=== PATIENT | male | born 1950 | race Caucasian/White ===

== ENCOUNTER 2017-07-26 08:10 | Inpatient (IN) | payer BC, OTHER ==
[2017-06-16 14:47] VITALS: BMI 24.0
--- NOTE | 2017-06-16 15:22 | PAT Medication Instructions ---
Service Date Jun 16, 2017. Current Home Medication List Ascorbic Acid (Vitamin C), 1,000 MG PO QAM Cholecalciferol (Vitamin D), 1,000 UNITS PO QAM Fluticasone Propionate (Nasal) (Flonase Allergy Relief), 2 SPRAYS INTNAS PRN Loratadine (Claritin), 10 MG PO QPM PRN for RN Misc Natural Products (Osteo Bi-Flex Advanced Do), 1 TAB PO BID PRN for PRN Naproxen (Aleve), 220 MG PO QAM Polyethylene Glycol 3350 (Miralax), 17 GM PO DAILY PRN for PRN Tamsulosin Hcl (Flomax), 0.4 MG PO QPM [Vitamin Pack], 1 DOSE PO QAM Medication Instructions For Your Scheduled Surgery -Contact your surgeon for instructions: Naproxen (Aleve), 220 MG PO QAM - Hold the following medications 2 weeks prior to surgery: Misc Natural Products (Osteo Bi-Flex Advanced Do), 1 TAB PO BID PRN for PRN - Hold the following medications the morning of surgery: Ascorbic Acid (Vitamin C), 1,000 MG PO QAM Cholecalciferol (Vitamin D), 1,000 UNITS PO QAM Loratadine (Claritin), 10 MG PO QPM PRN for RN Polyethylene Glycol 3350 (Miralax), 17 GM PO DAILY PRN for PRN [Vitamin Pack], 1 DOSE PO QAM - Take the following medications the morning of surgery: Fluticasone Propionate (Nasal) (Flonase Allergy Relief), 2 SPRAYS INTNAS PRN ( if needed) - Take the following medications as scheduled the night before surgery: (if needed) Fluticasone Propionate (Nasal) (Flonase Allergy Relief), 2 SPRAYS INTNAS PRN Loratadine (Claritin), 10 MG PO QPM PRN for RN (if needed) Tamsulosin Hcl (Flomax), 0.4 MG PO QPM Polyethylene Glycol 3350 (Miralax), 17 GM PO DAILY PRN for PRN (if needed) If you have any questions please call us at [phone] or [phone] or [phone]
--- NOTE | 2017-06-16 16:04 | DIAGNOSTIC IMAGING REPORT ---
CHEST 2 VIEWS ROUTINE CLINICAL HISTORY: pat preoperative evaluation COMPARISON STUDY: No previous studies for comparison. FINDINGS: Mild emphysematous change. No focal infiltrate. Heart top normal size limits of normal terms of size. Diaphragms smooth but somewhat flattened. IMPRESSION: Mild emphysematous change. No acute process. The above report was generated using voice recognition software. It may contain grammatical, syntax or spelling errors. Electronically signed by: Brando Steen M.D. 06/16/2017 4:03 PM Dictated Date/Time: 06/16/2017 4:02 PM
[2017-06-16 16:34] LABS: HEMOGLOBIN A1C 5.1 % (4.5-5.6)
[2017-06-16 16:55] LABS: PTT PATIENT 26.9 SECONDS (21.0-31.0)
--- NOTE | 2017-07-14 15:29 | HISTORY & PHYSICAL EXAMINATION ---
DATE OF ADMISSION: 07/26/2017 CHIEF COMPLAINT: Right hip pain. HISTORY OF PRESENT ILLNESS: Mr. Garcia is a 67-year-old male with a 10-year history of right hip pain. The patient rates his pain at 10/10. He has pain with his daily activities. He has limited standing and walking tolerance. Pain is worse with weightbearing. The patient has had injections, physical therapy, home exercise programs and anti-inflammatories through the years without relief. He has failed conservative treatment and is scheduled for right hip replacement. PAST MEDICAL HISTORY: Osteoarthritis. He denies heart disease, diabetes or DVT. PAST SURGICAL HISTORY: Tonsillectomy, appendectomy, right knee meniscectomy, and left bicep tendon repair. SOCIAL HISTORY: The patient drinks alcohol occasionally. He denies tobacco use. He lives in a single story home. 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 FAMILY HISTORY: The patient is adopted. MEDICATIONS: Flomax, Flonase, multivitamin and vitamin D. ALLERGIES: None. REVIEW OF SYSTEMS: See HPI. Ten other systems reviewed, all negative. PHYSICAL EXAMINATION: VITAL SIGNS: Height 71 inches, weight 175 pounds and BMI is 25. GENERAL: This is a well-developed and well-nourished male, who is alert and oriented x3. Mood and affect are appropriate. HEENT: Normocephalic and atraumatic. Mucous membranes are moist and intact. NECK: Supple without lymphadenopathy. HEART: Regular rate and rhythm without murmurs, rubs or gallops. LUNGS: Clear to auscultation without wheezes or rhonchi. ABDOMEN: Soft and nontender. Bowel sounds are equal and active. EXTREMITIES: No ecchymosis, redness or warmth. Thigh and calf are soft and nontender. Logroll of the hip reproduces pain in the groin. He is neurovascularly intact. He walks with an antalgic gait. X-RAY EXAMINATION: AP and lateral views show joint space narrowing and osteophyte formation. IMPRESSION: Degenerative joint disease, right hip. PLAN: The patient will be admitted for a right total hip arthroplasty. We will plan on aspirin for DVT prophylaxis. The patient is going to have [facility] for home physical therapy. [facility]
[2017-07-26] VITALS (8 sets, daily range): BP systolic 114–145; BP diastolic 68–91; PULSE 57–81; TEMP 36.3–37.3; O2SAT 96–100; Ht 180.3 cm; Wt 80.0 kg
[~2017-07-26] VITALS: Ht 180.3 cm; Wt 80.0 kg
[2017-07-26] MEDS: TRANEXAMIC ACID INJ 1,000 MG x 2 Bags IV SCH ×4 (06:30→10:24)
[~2017-07-26 08:10] MED LIST: ACETAMINOPHEN 500 MG TAB PO SCH; ASCO10003 PO; ATROPINE SULFATE 0.1 MG/ML 5ML SYR IV PRN; BUPIVACAINE 0.5 % 5 MG/1 ML PF 10ML VIAL ONE; CEFAZOLIN 2000MG IV PUSH 15 ML IV SCH; CHOL100010 PO; CLR10 PO; CeleBREX 200 MG CAP PO SCH; DEXAMETHASONE 4 MG TAB PO SCH; EpHEDrine SULFATE INJ 50 MG/ML AMP IV PRN; FAMOTIDINE 20 MG TAB PO SCH; FENTANYL CITRATE INJ 50 MCG/1 ML 2 ML VIAL IV PRN; FLUT0.15 INTNAS; GABAPENTIN 300 MG CAP PO SCH; HYDROmorphone INJ 1 MG/ML SYR IV PRN; LACTATED RINGER'S 1000ML 1,000 ML IV SCH; LACTATED RINGER'S 1000ML 500 ML IV SCH; METOCLOPRAMIDE HCL 10 MG TAB PO SCH; MISCTAB78 PO; NAPR1TAB9 PO; ONDANSETRON INJ 2 MG/ML 2 ML VIAL IV PRN; PHENYLEPHRINE 100MCG/ML 5ML SYR IV PRN; POLY335019 PO; PROMETHAZINE HCL INJ 12.5 MG in SODIUM CHLORIDE 0.9% 50ML 50 ML IV PRN; ROPIVACAINE 5MG/ML 30 ML 150 MG, BUPIVACAINE 0.5% MPF INJ 30 ML, EpINEphrine HCL INJ 0.... INFIL SCH; TAMS0.4C38 PO; VITAMIN PACK PO
[2017-07-26] MEDS ORDERED: MIDAZOLAM HCL 1 MG/ML 2ML VIAL ONE (08:58)
[2017-07-26] MEDS ORDERED: FENTANYL CITRATE INJ 50 MCG/1 ML 2 ML VIAL ONE (08:58)
--- NOTE | 2017-07-26 08:59 | History & Physical Bridge Note ---
H&P Re-Evaluation Bridge Note: I have examined the patient, reviewed the History & Physical and in the interval since the performance of the History & Physical I have noted the following changes of clinical significance: No changes noted
[2017-07-26] MEDS ORDERED: LORATADINE 10 MG TAB PO PRN (09:00)
[2017-07-26] MEDS ORDERED: FLUTICASONE PROPIONATE NA SPR 16 GM BTL PRN (09:00)
[2017-07-26] MEDS ORDERED: ORTHO JOINT ANESTHETIC ONE (09:29)
[2017-07-26] MEDS ORDERED: BACITRACIN 50000 UNIT VIAL ONE (09:29)
[2017-07-26] MEDS ORDERED: POVIDONE-IODINE OP SOLN 30 ML BTL ONE (09:29)
[2017-07-26] MEDS ORDERED: ONDANSETRON INJ 2 MG/ML 2 ML VIAL ONE (13:00)
[2017-07-26] MEDS ORDERED: PROPOFOL IV EMULSION 10 MG/ML 20 ML VIAL IV ONE (13:00)
[2017-07-26] MEDS ORDERED: EpHEDrine SULFATE 50MG/5ML SYR ONE (13:01)
--- NOTE | 2017-07-26 13:09 | [facility] Post Operative Brief Note ---
Immediate Operative Summary Operative Date Jul 26, 2017. Pre-Operative Diagnosis Right Hip Osteoarthritis Post-Operative Diagnosis Same as preop Procedure(s) Performed Right Anterior Total Hip Arthroplasty Uncemented Surgeon Dr. Wilkins Telecommunications Network Engineer Surgeon(s) Tahira Marinelli PA-C Estimated Blood Loss 150 ml Findings Consistent with Post-Op Diagnosis Specimens A. Right Femoral Head Drains None Anesthesia Type MAC Spinal Regional Complication(s) none Disposition Disposition: Recovery Room / PACU
[2017-07-26] MEDS ORDERED: OXYCODONE HCL IR 5 MG TAB (IMMEDIATE RELEASE) PO PRN (13:15)
[2017-07-26] MEDS ORDERED: ONDANSETRON INJ 2 MG/ML 2 ML VIAL IV PRN (13:15)
[2017-07-26] MEDS ORDERED: MoRPHine SULFATE 4 MG/ML 1 ML CARP\\VIAL IV PRN (13:15)
--- NOTE | 2017-07-26 13:20 | DIAGNOSTIC IMAGING REPORT ---
FLUOROSCOPIC IMAGES OF THE RIGHT HIP CLINICAL HISTORY: Arthroplasty. COMPARISON STUDY: No previous studies for comparison. Fluoroscopy time: 74.3 seconds. FINDINGS: Alignment of the total right hip arthroplasty is anatomic. Hardware is intact. There is an acetabular screw. There are no unexpected radiopaque foreign bodies. No fracture is visualized. IMPRESSION: Expected findings following total right hip arthroplasty. Electronically signed by: Aleksandar Melo M.D. 07/26/2017 1:18 PM Dictated Date/Time: 07/26/2017 1:17 PM
--- NOTE | 2017-07-26 13:23 | [facility] Operative Report ---
Operative Report Operative Date Jul 26, 2017. Pre-Operative Diagnosis Right Hip Osteoarthritis Post-Operative Diagnosis Same as preop Procedure(s) Performed Right Anterior Total Hip Arthroplasty Uncemented Surgeon Dr. Wilkins Hematologist Oncologist Surgeon(s) Tahira Marinelli PA-C Estimated Blood Loss 150 ml Findings see dictated op note Specimens A. Right Femoral Head Drains None Anesthesia Type MAC Spinal Regional Complication(s) none Disposition Recovery Room / PACU Indications The patient is a 67-year-old male who presents with severe progressive right hip DJD who has failed outpatient conservative treatments. I indicated the patient for a anterior total hip replacement and the risks and benefits were explained in detail which include but not limited to infection, bleeding, blood clot, damage to surrounding bone, nerves, vessels, soft tissue, hip dislocation , failure of the prosthesis, leg length discrepancy, need for additional surgery and . The patient agreed to proceed with replacement of the hip and informed consent was obtained. Description of Procedure COMPONENTS USED: Walker & NephDefinition 6 Anthology hip system: Acetabulum size 56, femur size 10 standard offset, femoral head 36+0, liner 3656, acetabular screw 25. DESCRIPTION OF PROCEDURE: Following satisfactory spinal, the patient was supine. The left leg was placed in the well leg ching and the right leg in the traction device. The right leg was prepared with ChloraPrep and draped sterilely. Following a surgical time-out, an anterior approach in the interval between the sartorius and tensor muscles was completed. Circumflex femoral vessels were identified and ligated and anterior capsulotomy was performed revealing the arthritic femoral neck and head. A femoral neck cut was made with reciprocating saw and the bone fragments removed. The acetabular self- retraining retractor was placed. Acetabular reaming was completed under fluoroscopic guidance, a 56 shell was impacted into an anatomic position and secured with a dome screw. Local anesthetic was placed and following irrigation , the polyethylene liner was placed. The femur was placed into position of external rotation, extension and adduction. Femoral canal was prepared up to the size 10 standard offset. Trial reduction with a 36+0 neck length head showed good soft tissue tension, leg lengths restored, and good fit and fill of the proximal canal using fluoroscopic landmarks. The hip was dislocated. The trial component was removed. The final implant was placed. The hip was irrigated and reduced. A Betadine soak was performed. After 3 minutes, the Betadine was irrigated. More local anesthetic was injected in the surround soft tissues. The capsule was then closed with 1-0 Vicryl interrupted. The fascia was closed with a running suture of #1 Vicryl, the subcutaneous tissues with 1 and 2-0 Vicryl and the skin with a running subcuticular stitch of 3-0 V-Loc. Dermabond and a dry dressing were applied. The patient tolerated the procedure well and was transported to PACU in stable condition. Due to the complex nature of the procedure, the entire surgery was performed with the operational assistance of Verenice Marinelli PA-C. The respiratory therapy assistant, under direct supervision, was involved in the actual performance of all aspects of the surgical procedure including hemostasis, tissue retraction and incision, instrument management, patient positioning, and wound closure. I attest to the content of the Intraoperative Record and any orders documented therein. Any exceptions are noted below. I attest to the content of the Intraoperative Record and any orders documented therein. Any exceptions are noted below.
--- NOTE | 2017-07-26 13:49 | DIAGNOSTIC IMAGING REPORT ---
SINGLE VIEW PELVIS; SINGLE VIEW RIGHT HIP CLINICAL HISTORY: Postoperative examination. FINDINGS: An AP portable view of the hips and pelvis with a crosstable lateral portable view of the right hip are obtained. A bipolar right hip arthroplasty is in near-anatomic alignment. A single cortical lag screw transfixes the acetabular cup. No acute fracture is identified. There are expected postoperative changes overlying the right hip including skin subcutaneous gas and soft tissue swelling. Advanced arthritic changes noted in the left hip. Surgical clips project over the spermatic cord bilaterally. IMPRESSION: Expected postoperative findings status post right hip arthroplasty. No acute fracture is seen. Electronically signed by: Raymundo Smith M.D. 07/26/2017 1:47 PM Dictated Date/Time: 07/26/2017 1:47 PM
--- NOTE | 2017-07-26 14:05 | Anesthesiology Progress Note ---
Anesthesia Post Op Note Date & Time Jul 26, 2017 at 14:04 Vital Signs Pain Intensity: 0 Vital Signs Past 12 Hours Date Time Temp Pulse Resp B/P (MAP) Pulse Ox O2 Delivery O2 Flow Rate FiO2 07/26/17 13:56 73 14 122/84 100 07/26/17 13:56 36.9 75 14 07/26/17 13:51 72 13 07/26/17 13:51 71 13 124/80 100 07/26/17 13:46 73 12 07/26/17 13:46 72 12 121/76 99 07/26/17 13:41 72 14 07/26/17 13:41 71 14 119/77 99 07/26/17 13:36 80 16 116/74 99 07/26/17 13:36 72 16 07/26/17 13:31 74 11 07/26/17 13:31 72 11 113/74 100 07/26/17 13:26 36.7 78 16 113/71 98 Oxymask 5 07/26/17 08:45 36.6 59 20 145/91 99 Room Air Notes Mental Status: alert / awake / arousable, participated in evaluation Pt Amnestic to Procedure: Yes Nausea / Vomiting: adequately controlled Pain: adequately controlled Airway Patency, RR, SpO2: stable & adequate BP & HR: stable & adequate Hydration State: stable & adequate Neuraxial Anesthesia: was administered, sensory block is resolving Anesthetic Complications: no major complications apparent
[2017-07-26] MEDS: SODIUM CHLORIDE 0.9% 1000ML 1,000 ML IV SCH ×2 (14:30→23:49)
[2017-07-26] MEDS: ACETAMINOPHEN 500 MG TAB PO SCH ×2 (15:42→20:44)
[2017-07-26] MEDS: KETOROLAC TROMETHAMINE 15 MG/ML VIAL IV. SCH ×2 (15:45→20:44)
[2017-07-26] MEDS ORDERED: INFLUENZA VACCINE HIGH DOSE 65+ 0.5 ML SYR IM. ONE (16:00)
[2017-07-26] MEDS ORDERED: INFLUENZA ADMINISTRATION CHARGE ONE (16:00)
[2017-07-26] MEDS: CEFAZOLIN IV 2,000 MG in SYRINGE 0 ML IV SCH (18:37)
--- NOTE | 2017-07-26 18:47 | Orthopedic Progress Note ---
Orthopedic Progress Note Date of Service Jul 26, 2017. Subjective Additional Notes: Post-operative progress note Patient seen laying in bed, comfortable, pain well controlled, no acute issues. Objective NAD, AOx3 PE RLE: NVSI +EHL/FHL/TA/GS SILT grossly, CR< 2 seconds, + 2 DP pulse, compartment soft NT, dressing CDI Date Time Temp Pulse Resp B/P (MAP) Pulse Ox O2 Delivery O2 Flow Rate FiO2 07/26/17 17:15 36.3 60 16 115/78 (90) 99 Room Air 07/26/17 16:15 78 16 121/76 (91) 100 Nasal Cannula 2.0 07/26/17 15:15 36.4 79 16 120/73 (89) 99 Nasal Cannula 2.0 07/26/17 14:45 37.3 81 16 126/82 (97) 98 Nasal Cannula 2.0 07/26/17 14:15 36.4 74 16 119/72 (88) 96 Nasal Cannula 07/26/17 14:15 Nasal Cannula 07/26/17 14:15 Nasal Cannula 2.0 07/26/17 13:56 73 14 122/84 100 07/26/17 13:56 36.9 75 14 07/26/17 13:51 72 13 07/26/17 13:51 71 13 124/80 100 07/26/17 13:46 73 12 07/26/17 13:46 72 12 121/76 99 07/26/17 13:41 72 14 07/26/17 13:41 71 14 119/77 99 07/26/17 13:36 80 16 116/74 99 07/26/17 13:36 72 16 07/26/17 13:31 74 11 07/26/17 13:31 72 11 113/74 100 07/26/17 13:26 36.7 78 16 113/71 98 Oxymask 5 07/26/17 08:45 36.6 59 20 145/91 99 Room Air Assessment & Plan Assessment: s/p Right Anterior WENDY Plan: -ancef x 24 -DVT ppx: ASA BID -Pain controlled -WBAT RLE -PT/OT -AM labs -PO XR: well aligned well fixed total hip prosthesis without fracture or dislocation. -DC planning, home with
[2017-07-26] MEDS: DOCUSATE SODIUM 100 MG CAP PO SCH (20:43)
[2017-07-26] MEDS: ASPIRIN 325 MG ECTAB PO SCH (20:43)
[2017-07-26] MEDS ORDERED: SENNA 8.6 MG TAB PO SCH (21:00)
[2017-07-26] MEDS ORDERED: TAMSULOSIN HCL 0.4 MG CAP PO SCH (21:00)
[2017-07-27 03:18] VITALS: BP 115/71; PULSE 58; TEMP 36.4; O2SAT 97
[2017-07-27] MEDS: CEFAZOLIN IV 2,000 MG in SYRINGE 0 ML IV SCH (03:44)
[2017-07-27] MEDS: KETOROLAC TROMETHAMINE 15 MG/ML VIAL IV. SCH ×2 (03:45→09:52)
[2017-07-27] MEDS: ACETAMINOPHEN 500 MG TAB PO SCH ×2 (05:22→14:29)
[2017-07-27 06:14] LABS: BASO % 0.1 %; BASO ABS # 0.01 K/uL (0-0.2); EOS % 0.1 %; EOS ABS # 0.01 K/uL (0-0.5); HEMATOCRIT 36.8 % (42-52); HEMOGLOBIN 12.7 g/dL (14.0-18.0); IG# 0.03 K/uL (0.00-0.02); LYMPH % 5.1 %; LYMPH ABS # 0.74 K/uL (1.2-3.4); MEAN CELL VOLUME 87.8 fL (80-100); MEAN CORPUSCULAR HEMOGLOBIN 30.3 pg (25-34); MEAN CORPUSCULAR HGB CONC 34.5 g/dl (32-36); MEAN PLATELET VOLUME 10.2 fL (7.4-10.4); MONO % 8.5 %; MONO ABS # 1.22 K/uL (0.11-0.59); NEUT ABS # 12.38 K/uL (1.4-6.5); PLATELET COUNT 191 K/uL (130-400); RED CELL DISTRIBUTION WIDTH CV 12.9 % (11.5-14.5); RED CELL DISTRIBUTION WIDTH SD 41.6 fL (36.4-46.3); WHITE BLOOD COUNT 14.39 K/uL (4.8-10.8)
[2017-07-27 06:39] LABS: CALCIUM 8.7 mg/dl (8.5-10.1); CREATININE 1.03 mg/dl (0.60-1.40); POTASSIUM 4.3 mmol/L (3.5-5.1)
[2017-07-27] MEDS ORDERED: RXC5 PO (07:20)
[2017-07-27] MEDS ORDERED: ONDA-170 PO (07:20)
[2017-07-27] MEDS ORDERED: ASPEC325 PO (07:20)
[2017-07-27] MEDS ORDERED: CLB200 PO (07:20)
[2017-07-27] MEDS ORDERED: ACET-24 PO (07:20)
[2017-07-27] MEDS ORDERED: SENN-61 PO (07:20)
--- NOTE | 2017-07-27 07:22 | Discharge Instructions ---
Discharge Instructions Date of Service Jul 27, 2017. Admission Reason for Admission: Right Hip Osteoarthritis Discharge Discharge Diagnosis / Problem: sp right WENDY- direct anterior Discharge Goals Goal(s): Decrease discomfort, Improve function, Increase independence Activity Recommendations Activity Limitations: per Instructions/Follow-up section . Instructions / Follow-Up Instructions / Follow-Up ACTIVITY RECOMMENDATIONS: SELF CARE INSTRUCTIONS AFTER TOTAL HIP REPLACEMENT Until the incision and soft tissues around your hip have healed, there is a possibility that the hip prosthesis could dislocate. A. Observe the following precautions to prevent dislocation: 1. Don't bend your hip greater than 90 degrees. 2. Avoid crossing your legs or ankles while standing or lying. 3. Sit with your feet placed 6 inches apart. 4. When sitting, keep your knees below your hips. Sit on a firm surface, avoid deep, soft chairs and couches. Use an elevated toilet seat in the bathroom. 5. Don't bend over at the waist. Use a long handled shoehorn and a sock aid to help you put on your shoes and socks. A visual supervisor can help you orange picker objects that are too high or too low to reach. 6. Keep car riding to a minimum for at least one month after surgery. B. Your balance may be shaky for a while. Use crutches or a walker until directed by your doctor. C. Use hand rails when walking on stairs. D. Wear low heeled shoes with non-slip soles. E. Be sure that your floors are free of things that could trip you - throw rugs , electrical cords, small objects. Avoid wet and waxed floors, especially with crutches and canes. F. Try to walk several times a day with rest periods between. G. Continue with all the exercises taught to you in the hospital. Again, make walking a part of your daily routine. SPECIAL CARE INSTRUCTIONS: VERY IMPORTANT TO READ AND REVIEW A. You may still be at risk for phlebitis and blood clots. 1. Wear surgical stockings (RENETTA hose) for 2 weeks after surgery to improve circulation and reduce swelling. 2. Take Aspirin 325 mg twice daily for 4 weeks or as directed by your doctor. This is your blood thinner. 3. High risk patients may be prescribed a stronger blood thinner if necessary. 4. If you are on Coumadin normally, your family doctor/.net developer should monitor your blood work. Expect a phone call the day of or the day after bloodwork is drawn to adjust your dosage. B. You must take antibiotics before having dental work, bladder, bowel and other surgery. Your doctor will provide you with a permanent card to carry describing precautions. C. Call [facility] if you have a fever, redness or swelling around the incision, cloudy drainage from incision, or sudden increase in pain in your hip, not relieved by your regular pain medication. D. Please call the office at if you have any concerns or questions about your operation or recovery. * YOU MAY SHOWER, NO TUB BATHS UNTIL CLEARED BY YOUR DOCTOR. * WEAR RENETTA HOSE 20 HOURS PER DAY FOR 2 WEEKS. * YOU SHOULD USE A WALKER OR CRUTCHES FOR 2-4 WEEKS. THIS WILL HELP PREVENT STRAIN ON YOUR HIP MUSCLE AND ALLOW IT TO HEAL PROPERLY. YOU MAY WEAN TO A CANE TOLERATED. * MOST PATIENTS WILL HAVE HOME NURSING FOR THERAPY. IF YOU DECIDE TO DO OUTPATIENT PHYSICAL THERAPY, PLEASE SCHEDULE THIS 3 TIMES PER WEEK. DERMABOND Prineo- This is a mesh tape dressing that is covered with glue. It should remain in place until the incision is properly healed, usually 10-14 days. This dressing is designed to naturally slough off. You may trim the excess mesh tape as it peels off. Incision may be briefly wet in a shower. Dry immediately by blotting with a clean, dry towel. Do not bath or swim until instructed by your doctor. Do not scratch, rub, or pick at the dressing. Do not apply any topical ointments or lotions until dressing is completely removed and/or instructed by your doctor. There may be a small piece of suture material at one end of your incision. Do not pull or trim this. If it is bothersome or catching on clothing, you may cover it with a band-aid. FOLLOW UP VISIT: If appointment is not already scheduled: Please call [facility] to make a follow-up appointment for 2 weeks after your surgery at . Current Hospital Diet Patient's current hospital diet: Regular Diet Discharge Diet Recommended Diet: Regular Diet Procedures Procedures Performed: Right Anterior Total Hip Arthroplasty Uncemented Pending Studies Studies pending at discharge: no Laboratory Results Hemoglobin A1c Test 06/16/17 15:32 Range/Units Estimated Average Glucose 100 mg/dl Hemoglobin A1c 5.1 4.5-5.6 % Medical Emergencies . Who to Call and When: Medical Emergencies: If at any time you feel your situation is an emergency, please call 911 immediately. . Non-Emergent Contact Non-Emergency issues call your: Surgeon . "Provider Documentation" section prepared by Tahira Marinelli. . [place] Drug Monitoring Program Search Results: patient reviewed within database, no issues identified
[2017-07-27 08:00] VITALS: BP 122/78; PULSE 60; TEMP 36.4; O2SAT 97
[2017-07-27] MEDS: DOCUSATE SODIUM 100 MG CAP PO SCH (08:29)
[2017-07-27] MEDS: ASPIRIN 325 MG ECTAB PO SCH (08:30)
[2017-07-27 08:47] VITALS: O2SAT 97
[2017-07-27] MEDS ORDERED: PANTOprazole SOD 40 MG TAB PO SCH (09:00)
[2017-07-27] MEDS ORDERED: MULTIVITAMIN TAB PO SCH (09:00)
[2017-07-27 09:45] VITALS: BP 145/81; PULSE 75; O2SAT 97
[2017-07-27] MEDS: SODIUM CHLORIDE 0.9% 1000ML 1,000 ML IV SCH (09:52)
--- NOTE | 2017-07-27 10:00 | Orthopedic Progress Note ---
Orthopedic Progress Note Date of Service Jul 27, 2017. Subjective Additional Notes: Patient seen at bedside, comfortable, pain well controlled, denies complaints, no acute issues overnight. Objective NAD, AOx3 PE RLE: NVSI +EHL/FHL/TA/GS SILT grossly, CR< 2 seconds, + 2 DP pulse, compartment soft NT, dressing CDI Date Time Temp Pulse Resp B/P (MAP) Pulse Ox O2 Delivery O2 Flow Rate FiO2 07/27/17 08:50 36.4 60 20 97 Room Air 07/27/17 08:47 97 Room Air 07/27/17 08:00 36.4 60 20 122/78 (93) 97 Room Air 07/27/17 07:20 Room Air 07/27/17 03:18 36.4 58 16 115/71 (86) 97 Room Air 07/26/17 23:30 36.4 63 16 118/72 (87) 97 Room Air 07/26/17 19:25 Room Air 07/26/17 19:23 36.3 57 16 114/68 (83) 99 Room Air 07/26/17 17:15 36.3 60 16 115/78 (90) 99 Room Air 07/26/17 16:15 78 16 121/76 (91) 100 Nasal Cannula 2.0 07/26/17 15:15 36.4 79 16 120/73 (89) 99 Nasal Cannula 2.0 07/26/17 14:45 37.3 81 16 126/82 (97) 98 Nasal Cannula 2.0 07/26/17 14:15 36.4 74 16 119/72 (88) 96 Nasal Cannula 07/26/17 14:15 Nasal Cannula 07/26/17 14:15 Nasal Cannula 2.0 07/26/17 13:56 73 14 122/84 100 07/26/17 13:56 36.9 75 14 07/26/17 13:51 72 13 07/26/17 13:51 71 13 124/80 100 07/26/17 13:46 73 12 07/26/17 13:46 72 12 121/76 99 07/26/17 13:41 72 14 07/26/17 13:41 71 14 119/77 99 07/26/17 13:36 80 16 116/74 99 07/26/17 13:36 72 16 07/26/17 13:31 74 11 07/26/17 13:31 72 11 113/74 100 07/26/17 13:26 36.7 78 16 113/71 98 Oxymask 5 Laboratory Results 24 Hours: Test 07/27/17 05:17 White Blood Count 14.39 K/uL Red Blood Count 4.19 M/uL Hemoglobin 12.7 g/dL Hematocrit 36.8 % Mean Corpuscular Volume 87.8 fL Mean Corpuscular Hemoglobin 30.3 pg Mean Corpuscular Hemoglobin Concent 34.5 g/dl Platelet Count 191 K/uL Mean Platelet Volume 10.2 fL Neutrophils (%) (Auto) 86.0 % Lymphocytes (%) (Auto) 5.1 % Monocytes (%) (Auto) 8.5 % Eosinophils (%) (Auto) 0.1 % Basophils (%) (Auto) 0.1 % Neutrophils # (Auto) 12.38 K/uL Lymphocytes # (Auto) 0.74 K/uL Monocytes # (Auto) 1.22 K/uL Eosinophils # (Auto) 0.01 K/uL Basophils # (Auto) 0.01 K/uL Prothromb Time International Ratio 1.0 Prothrombin Time 10.2 SECONDS Assessment & Plan Assessment: s/p Right Anterior WENDY POD#1 Plan: -ancef x 24 -DVT ppx: ASA BID -Pain controlled -WBAT RLE -PT/OT -AM labs -PO XR: well aligned well fixed total hip prosthesis without fracture or dislocation. -DC planning, home with
[2017-07-27 12:00] VITALS: BP 132/82; PULSE 54; TEMP 37; O2SAT 98
[2017-07-27] MEDS ORDERED: CeleBREX 200 MG CAP PO SCH (21:00)
--- NOTE | 2017-07-28 15:11 | Anesthesiology Progress Note ---
Anesthesia Post Op Note Date & Time Jul 28, 2017 at 15:07 Vital Signs Pain Intensity: 1.0 Notes Mental Status: alert / awake / arousable, participated in evaluation Pt Amnestic to Procedure: Yes Nausea / Vomiting: adequately controlled Pain: adequately controlled Airway Patency, RR, SpO2: stable & adequate BP & HR: stable & adequate Hydration State: stable & adequate Neuraxial Anesthesia: sensory block resolved Anesthetic Complications: no major complications apparent This post-op visit was made on July 27, 2017 @ 07:30 AM
== END 2017-07-27 15:05 | disposition home health service (06) | DRG 470 ==
LOC: C.ACU 08:10 → C.3E 09:00 → ENRESERV 13:43
PROVIDERS: ADMIT Orthopaedic Surgery; ATTEND Orthopaedic Surgery
PROC: 0SR90JA Replacement of Right Hip Joint with Synthetic Substitute, Uncemented, Open Approach (ICD-10-PCS; principal; 2017-07-26 10:45)
DX: M16.11 Unilateral primary osteoarthritis, right hip (principal); Z79.899 Other long term (current) drug therapy

== ENCOUNTER 2019-10-29 07:31 | Inpatient (IN) ==
--- NOTE | 2019-10-16 15:56 | PAT Medication Instructions ---
Medication Instructions Date of Service October 16, 2019 Home Medications Airborne (ascorbate sodium) 1 dose PO DAILY [facility] Vitamin Pack 50 Plus 1 dose PO DAILY ibuprofen 200 mg PO Q6H PRN tamsulosin [Flomax] 0.4 mg PO QPM ASK your surgeon for instructions ibuprofen 200 mg PO Q6H PRN STOP taking 2 weeks before surgery (or as soon as possible if surgery is within 2 weeks) [facility] Vitamin Pack 50 Plus 1 dose PO DAILY DO NOT take the morning of surgery Airborne (ascorbate sodium) 1 dose PO DAILY Take evening before surgery tamsulosin [Flomax] 0.4 mg PO QPM Other Notes If you have any questions please call us at [phone] or [phone] or [phone] or [phone]
--- NOTE | 2019-10-17 13:01 | Anesthesiology Consultation ---
Date of Service October 17, 2019 Assessment & Plan (1) Encounter for pre-operative examination: Chart Review Chart Review: Acceptable Risk for Surgery (pending PCP clearance and Covid testing ) and Patient seen in Pre Admission Testing Pending surgeon ordered PCP clearance on 10/19/19. *Per PAT appt 10/17/19, pt resides in [facility]. No travel to endemic areas. Wears mask in public. Educated and patient aware of Covid testing three days prior to surgery. Educated on importance of social distancing, self quarantining, and no travel for both himself and household members from time of test until surgery. Right WENDY 07/26/17= Done under MAC with SAB (given at L3-4). No anesthesia issues per record Teaching & Discussion Pre-Anesthesia Teaching/Discussion Notes: Instructed NPO after midnight before surgery,except medications with 15 cc of water. Medication instructions provided according to the PAT guidelines. History Surgery Operation Date: 10/29/19 07:00 Proposed Procedures p Left Anterior Total Hip Arthroplasty - Arvind Wilkins DO Height/Weight Height: 5 ft 9 in Weight: 76.9 kg Allergies Allergy/AdvReac Type Severity Reaction Status Date / Time chlorhexidine Allergy Intermediate RASH Verified 10/11/19 10:20 Medications Home Medications Medication Instructions Recorded Confirmed Last Taken Airborne (ascorbate sodium) 1 dose PO DAILY 10/11/19 10/11/19 Unknown [facility] Vitamin Pack 50 Plus 1 dose PO DAILY 10/11/19 10/11/19 Unknown ibuprofen 200 mg PO Q6H PRN 10/11/19 10/11/19 Unknown tamsulosin [Flomax] 0.4 mg PO QPM 10/11/19 10/11/19 Unknown Past Medical History Medical History BPH (benign prostatic hyperplasia) Hearing deficit BL MABRY Osteoarthritis Exercise / Class Metabolic Activity II 4-5 Yardwork/Stairs/Walk up hill (one flight of stairs- no chest pain or SOB ) Past Family History Family History Other Adopted Past Surgical History Surgical History History of appendectomy History of colonoscopy History of meniscectomy of right knee History of right hip replacement History of tonsillectomy History of wisdom tooth extraction Status post tendon repair LUE Past Anesthesia History No Hx of Anesthesia Complications and Other (Pt adopted - does not know FH) History of PONV No Hx of PONV and No Hx of Motion Sickness Social History Smoking Status: Never smoker Do You Dip or Chew Tobacco: No Hx Alcohol Use: Yes Alcohol type: wine alcohol intake frequency: a few times a week Hx Substance Use: No substance use type: does not use Review of Systems Patient denies chest pain, shortness of breath, dyspnea on exertion, reflux, cough, wheezing, palpitations. No hx of seizures, stroke, AL, apnea/snoring. No hx of blood clots or blood transfusions Physical Exam Vital Signs VITALS BP 102/61 P 53 (per patient- chronic bradycardia due to being a runner- no dizziness or syncope) TEMP 98.4 SP02 98% RESP 16 Constitutional no acute distress ENMT Mouth: no TMJ clicking Thyromental Distance: > or= 3.5 Finger Breadths (3.5) Mallampati Class: II Cap on right molar Neck neck extension not limited Respiratory normal respiratory effort; no respiratory distress Auscultation: lungs clear to auscultation bilaterally; no wheezes Cardiovascular Rate/Rhythm: regular rate and regular rhythm Heart Sounds: no murmur Vessels: no carotid bruit Musculoskeletal Spine: no pain with cervical ROM Neurologic moves all extremities Psychiatric Orientation: alert Testing Laboratory Results 10/17/19 13:15 10/17/19 13:15 PT 10.8 Seconds (9.0-12.0) 10/17/19 13:15 INR 1.0 (0.9-1.1) 10/17/19 13:15 APTT 27.8 Seconds (21.0-31.0) 10/17/19 13:15 Hemoglobin A1c 5.4 % (4.5-5.6) 10/17/19 13:15 Urine Color Dark Yellow 10/17/19 Unknown Urine Appearance Clear (Clear) 10/17/19 Unknown Urine pH 5.5 (4.5-7.5) 10/17/19 Unknown Ur Specific [employer] 1.025 (1.000-1.030) 10/17/19 Unknown Urine Protein Negative (Negative) 10/17/19 Unknown Urine Glucose (UA) Negative (Negative) 10/17/19 Unknown Urine Ketones Trace (Negative) H 10/17/19 Unknown Urine Nitrite Negative (Negative) 10/17/19 Unknown Ur Leukocyte Esterase Negative (Negative) 10/17/19 Unknown Blood Type B Positive 10/17/19 13:15 Antibody Screen NEGATIVE 10/17/19 13:15 Electrocardiogram Date: 10/17/19 Findings: + SB @ (46) Moderate voltage criteria for LVH, may be normal variant. Compared to EKG from Jun 16, 2017- no significant change found per cardio. Chest X-Ray Date: 10/17/19 Findings: + NAD The lungs are hyperinflated and emphysematous change is suspected. Nonspecific interstitial thickening is noted Echocardiogram Date: 06/29/16 EF: 60-65% LV Function: normal Valvular Disease: + no significant valvular disease
[2019-10-17 13:32] LABS: Basophils # (auto) 0.05 K/uL (0-0.2); Basophils % (auto) 0.7 %; Eosinophils # (auto) 0.19 K/uL (0-0.5); Eosinophils % (auto) 2.7 %; Hematocrit (blood only) 42.3 % (42-52); Immature Granulocytes # (auto) 0.02 K/uL (0.00-0.02); Immature Granulocytes % (auto) 0.3 %; Lymphocytes # (auto) 0.88 K/uL (1.2-3.4); Lymphocytes % (auto) 12.6 %; Mean Corpuscular Hemoglobin 30.4 pg (25-34); Mean Corpuscular Hgb Conc 33.1 g/dL (32-36); Mean Corpuscular Volume 91.8 fL (80-100); Mean Platelet Volume 10.2 fL (7.4-10.4); Monocytes # (auto) 0.38 K/uL (0.11-0.59); Monocytes % (auto) 5.4 %; Neutrophils # (auto) 5.46 K/uL (1.4-6.5); Neutrophils % (auto) 78.3 %; Platelet Count 208 K/uL (130-400); RDW Coefficient of Variation 13.6 % (11.5-14.5); RDW Standard Deviation 45.2 fL (36.4-46.3); Red Blood Count 4.61 M/uL (4.7-6.1); White Blood Count 6.98 K/uL (4.8-10.8)
--- NOTE | 2019-10-17 13:34 | XRay Report ---
TWO VIEW CHEST CLINICAL HISTORY: Preoperative examination. FINDINGS: PA and lateral chest radiographs are compared to study dated 06/16/2017. The cardiomediastin al silhouette is unremarkable. The lungs are hyperinflated and emphysematous change is suspected. Non specific interstitial thickening is noted. There is no airspace consolidation or pleural effusion. Th ere is no pneumothorax. The bony thorax appears intact. IMPRESSION: No active disease in the chest. ACT 112: Negative or not required by law. Electronically signed by: Raymundo Smith M.D. 10/17/2019 1:33 PM
[2019-10-17 13:42] LABS: Appearance Urine Clear (Clear); Bilirubin Urine Negative (Negative); Blood Urine Negative (Negative); Color Urine Dark Yellow; Glucose Urine UA Negative (Negative); Ketones Urine Trace (Negative); Leukocyte Esterase Urine Negative (Negative); Nitrite Urine Negative (Negative); Protein Urine Negative (Negative); Specific Gravity Urine 1.025 (1.000-1.030); Urobilinogen Urine Negative (Negative); pH Urine 5.5 (4.5-7.5)
[2019-10-17 13:48] LABS: Partial Thromboplastin Time 27.8 Seconds (21.0-31.0); Prothrombin Time 10.8 Seconds (9.0-12.0)
[2019-10-17 14:23] LABS: Estimated Average Glucose 108 mg/dl; Hemoglobin A1C 5.4 % (4.5-5.6)
--- NOTE | 2019-10-17 15:34 | Electrocardiogram Report ---
Test Reason : Blood Pressure : / mmHG Vent. Rate : 046 BPM Atrial Rate : 046 BPM P-R Int : 154 ms QRS Dur : 094 ms QT Int : 478 ms P-R-T Axes : 071 064 075 degrees QTc Int : 418 ms Sinus bradycardia Moderate voltage criteria for LVH, may be normal variant Borderline ECG When compared with ECG of 16-JUN-2017 15:35, No significant change was found Confirmed by Siva Holbrook ([id number]) on 10/17/2019 3:33:49 PM Referred By: Arvind Wilkins Confirmed By:Shaquille Holbrook
[2019-10-17 16:24] LABS: Albumin Level 3.3 gm/dl (3.4-5.0); BUN Creatinine Ratio 30.8 (10-20); Calcium 8.8 mg/dl (8.5-10.1); Creatinine Clr Calc Pharmacy 70.3 ml/min; Est GFR (African American) 87.7; Est GFR (Non-African American) 75.7; Potassium 4.4 mmol/L (3.5-5.1)
--- NOTE | 2019-10-28 11:43 | History & Physical Report ---
Date of Service October 29, 2019 Assessment & Plan (1) Degenerative joint disease of left hip: I have indicated the patient for left anterior total hip replacement. The risks, benefits and complications of surgery were explained to the patient which include but not limited to infection, acute blood loss, DVT/PE, injury to nerves, vessels, bone, soft tissue, arthrofibrosis, chronic pain, failure of the prosthesis, hip dislocation, leg length discrepancy, need for additional surgery, cardiac and pulmonary events and . The patient wished to proceed with surgery and informed consent was obtained at this time. We will plan for 81mg ASA BID post-operatively for DVT prophylaxis. Upon discharge the patient will be discharged home with home health services. Appropriate clearances by PCP were obtained. History of Present Illness Chief Complaint: Left hip pain/djd Primary Care Provider: NO PCP The patient is a 69 year old male who presents with complaints of severe left hip pain and DJD. The patient has failed outpatient conservative treatments to this point which included NSAIDs, IA corticosteroid injection, PT and a home exe rcise walking program. The patient's pain and limited function have progressed to the point where they severely hinder their activities of daily living and they no longer tolerate exercise programs. They are requesting to proceed with total hip replacement surgery. Allergies Allergy/AdvReac Type Severity Reaction Status Date / Time chlorhexidine Allergy Intermediate RASH Verified 10/29/19 07:44 Home Medications Home Medications Medication Instructions Recorded Confirmed Type Airborne (ascorbate sodium) 1 dose PO DAILY 10/11/19 10/29/19 History [facility] Vitamin Pack 50 Plus 1 dose PO DAILY 10/11/19 10/29/19 History ibuprofen 200 mg PO Q6H PRN 10/11/19 10/29/19 History tamsulosin [Flomax] 0.4 mg PO QPM 10/11/19 10/29/19 History Past Med/Surg History Medical History BPH (benign prostatic hyperplasia) Hearing deficit BL MABRY Osteoarthritis Surgical History History of appendectomy History of colonoscopy History of meniscectomy of right knee History of right hip replacement History of tonsillectomy History of wisdom tooth extraction Status post tendon repair LUE Family History Other Adopted Social History Preferred Language: Turkish Communication Ability: Effective Smoking Pipe Liner Required: No Beliefs That Will Affect Care: None Current Living Situation: Spouse Feels Safe at Home: Yes Safety Concerns: Feels Safe At This Time Smoking Status: Never smoker Do You Dip or Chew Tobacco: No ; Second Hand Exposure: Yes ( A CHILD) ; Tobacco Cessation Education Requested by Patient: No Hx Alcohol Use: Yes Alcohol type: wine Hx Substance Use: No Review of Systems Review of Systems: All systems reviewed & are unremarkable except as noted in HPI & below Constitutional: as per Subjective / HPI Physical Exam Physical Exam: LLE NVSI +EHL/FHL/TA/GS SILT grossly, +2 DP pulse, compartments soft NT, limited painful ROM of the hip, antalgic gait. Constitutional: WD/WN, vitals as above Eyes: PERRL, conjunctivae normal, anicteric sclerae ENMT: external ear and nose normal, oropharynx normal Neck: trachea midline, no thyromegaly Respiratory: normal respiratory effort, lungs clear to auscultation Cardiovascular: RRR, no murmur, no edema Gastrointestinal (Abdomen): normal bowel sounds, soft, nontender, no hepatosplenomegaly Musculoskeletal: no cyanosis or clubbing, extremities motor strength 5/5 Skin: no rashes, warm and dry Neurologic: patellar DTR's 2+ bilat, sensation intact Psychiatric: A+Ox3, euthymic affect Lymphatic: no cervical or axillary lymphadenopathy Results & Data Results & Data ([facility]) Diagnostic Findings Multiple views of the hip demonstrates severe DJD with complete loss of the joint space. +osteophytes, +sclerosis, +subchondral cysts.
[~2019-10-29 07:31] MED LIST changes: -ASCO10003 PO; -ATROPINE SULFATE 0.1 MG/ML 5ML SYR IV PRN; +CEFAZOLIN 2000MG 2,000 MG/15 ML SYR IV SCH; -CEFAZOLIN 2000MG IV PUSH 15 ML IV SCH; -CHOL100010 PO; -CLR10 PO; -DEXAMETHASONE 4 MG TAB PO SCH; -EpHEDrine SULFATE INJ 50 MG/ML AMP IV PRN; -FENTANYL CITRATE INJ 50 MCG/1 ML 2 ML VIAL IV PRN; -FLUT0.15 INTNAS; -HYDROmorphone INJ 1 MG/ML SYR IV PRN; -LACTATED RINGER'S 1000ML 1,000 ML IV SCH; -LACTATED RINGER'S 1000ML 500 ML IV SCH; +LR 500ML BOLUS, THEN 15ML/HR IV SCH; -METOCLOPRAMIDE HCL 10 MG TAB PO SCH; +METOCLOPRAMIDE HCL 10 MG TABLET PO SCH; -MISCTAB78 PO; -NAPR1TAB9 PO; -ONDANSETRON INJ 2 MG/ML 2 ML VIAL IV PRN; -PHENYLEPHRINE 100MCG/ML 5ML SYR IV PRN; -POLY335019 PO; -PROMETHAZINE HCL INJ 12.5 MG in SODIUM CHLORIDE 0.9% 50ML 50 ML IV PRN; +ROPIVACAINE 0.5% HCL/PF 150 MG, BUPIVACAINE 0.5% MPF 30 ML, EPINEPHrine 30MG/30ML (OR U... INSTIL SCH; -ROPIVACAINE 5MG/ML 30 ML 150 MG, BUPIVACAINE 0.5% MPF INJ 30 ML, EpINEphrine HCL INJ 0.... INFIL SCH; -TAMS0.4C38 PO; +TRANEXAMIC ACID 1,000 MG **IV Intra-op IV SCH; +TRANEXAMIC ACID 1,000 MG **IV Pre-op IV SCH; -VITAMIN PACK PO; +dexAMETHasone 4 MG TAB PO SCH
[2019-10-29] MEDS ORDERED: MIDAZOLAM HCL 1 MG/ML 2ML VIAL ONE ×2 (08:42)
[2019-10-29] MEDS ORDERED: fentaNYL citrate 100 MCG/2 ML VIAL ONE (08:42)
--- NOTE | 2019-10-29 09:08 | History & Physical Bridge Note ---
Date of Service October 29, 2019 History & Physical Bridge Note I have examined the patient, reviewed the History & Physical and in the interval since the performance of the History & Physical I have noted the following changes of clinical significance: no changes noted
[2019-10-29] MEDS ORDERED: ORTHO JOINT ANESTHETIC ONE (09:16)
[2019-10-29] MEDS ORDERED: BACITRACIN INJ 50,000 UNIT VIAL ONE (09:17)
[2019-10-29] MEDS ORDERED: PROPOFOL IV EMULSION 10 MG/ML 20 ML VIAL IV ONE (10:08)
[2019-10-29] MEDS ORDERED: ePHEDrine sulfate 50 MG/ML AMP ONE ×2 (10:49→11:32)
--- NOTE | 2019-10-29 11:33 | Post Operative Brief Note ---
Immediate Post Op Note v1 Date of Surgery October 29, 2019 Pre & Post Diagnosis Operation Date: 10/29/19 10:00 Pre-Op Diagnosis: LEFT HIP OSTEOARTHRITIS Post-Op Diagnosis: LEFT HIP OSTEOARTHRITIS I identified the patient and participated in the time-out.: Yes Procedure Operation Date: 10/29/19 10:00 Actual Procedures p Left Anterior Total Hip Arthroplasty(Left) - Arvind Wilkins DO Surgeon Arvind Wilkins DO Reheater Dayne Mcgrath Estimated Blood Loss 135 Findings Consistent with Post-Op Diagnosis Fluids 1500 cc LR Specimens femoral head Anesthesia Type Spinal MAC Complications none Disposition Disposition: Recovery Room Overlapping Procedure I was present for: the critical portions of procedure. I was immediately available: during the entire case. Back up surgeon: was not required during procedure.
--- NOTE | 2019-10-29 11:35 | Operative Report ---
Post Operative Report Pre & Post Diagnosis Operation Date: 10/29/19 10:00 Pre-Op Diagnosis: LEFT HIP OSTEOARTHRITIS Post-Op Diagnosis: LEFT HIP OSTEOARTHRITIS I identified the patient and participated in the time-out.: Yes Procedure Operation Date: 10/29/19 10:00 Actual Procedures p Left Anterior Total Hip Arthroplasty(Left) - Arvind Wilkins DO Surgeon Arvind Wilkins DO Cuffing Machine Operator Dayne Mcgrath Estimated Blood Loss 135 Findings Consistent with Post-Op Diagnosis Specimens femoral head Anesthesia Type Spinal MAC Complications none Disposition Disposition: Recovery Room Indications The patient is a 62-year-old male who presents with severe progressive left hip DJD who has failed outpatient conservative treatments. I indicated the patient for a anterior total hip replacement and the risks and benefits were explained in detail which include but not limited to infection, bleeding, blood clot, damage to surrounding bone, nerves, vessels, soft tissue, hip dislocation, failure of the prosthesis, leg length discrepancy, need for additional surgery and . The patient agreed to proceed with replacement of the hip and informed consent was obtained. Appropriate clearances were obtained. Description of Procedure COMPONENTS USED: [employer] hip system: Acetabulum size 58, femur size 10 stem offset, femoral head 36-3, liner 5830, acetabular screw 25 mm x 1. DESCRIPTION OF PROCEDURE: Following satisfactory spinal anesthesia, the patient was placed supine on the OR table. The right leg was placed in the well leg ching and the left leg in the traction device. The left leg was prepared with ChloraPrep and draped sterilely. A surgical timeout was performed, patient identified and site swapnil verified. Appropriate antibiotics were given. A standard anterior approach in the interval between the sartorius and tensor muscles was performed. Dissection was carried down through subcutaneous tissues. Electrocautery was utilized for hemostasis. Circumflex femoral vessels were identified, tied and ligated. The anterior capsular fat pad was removed and the capsulotomy was performed revealing the arthritic femoral neck and head. A femoral neck cut was made with reciprocating saw and the bone fragments removed. The acetabular self-retraining retractor was placed. Acetabular reaming was completed under fluoroscopic guidance, a 58 shell was impacted into an anatomic position and secured with a dome screw. Local anesthetic was placed and following irrigation, the polyethylene liner was placed. The femur was placed into position of external rotation, extension and adduction. Femoral canal was prepared up to the size 10 offset. Trial reduction with a 36-3 neck length head showed good soft tissue tension, leg lengths restored, and good fit and fill of the proximal canal using fluoroscopic landmarks. The hip was dislocated. The trial component was removed. The final implant was placed. The hip was irrigated with sterile saline solution and reduced. A Betadine soak was performed. After 3 minutes, the hip was once more irrigated with copious sterile saline solution with bacitracin. Jovita-incisional soft tiss ue was injected utilizing [place] [employer] which includes a combination of Ropivicaine 0.5% 150mg, Bupivicaine 0.5%/Epinephrine 1:200,000 30ml, Toradol 30mg, Dexamethasone 4mg, Ketamine 10mg, Clonidine 100mcg and NSS 30ml solution. The capsule was then closed with 1-0 Vicryl interrupted figure of eight sutures. The fascia was closed with a running suture of #1 Vicryl, the subcutaneous tissues with 2-0 Vicryl and the skin with a running subcuticular stitch of 3-0 V-Loc. Dermabond prineo and a dry dressing were applied. The patient tolerated the procedure well and was transported to PACU in stable condition. Due to the complex nature of the procedure, the entire surgery was performed with the operational assistance of Dayne Mcgrath PA-C. The railway yard assistant, under direct supervision, was involved in the actual performance of all aspects of the surgical procedure including patient positioning, hemostasis, tissue retraction, instrument management and wound closure. I attest to the content of the Intraoperative Record and any orders documented therein. Any exceptions are noted below.
--- NOTE | 2019-10-29 11:39 | Fluoroscopy Report ---
FL hip LT 1V CLINICAL HISTORY: LT ANTERIOR TOTAL COMPARISON STUDY: Pelvis radiograph July 26, 2017. FLUOROSCOPY TIME: 40 seconds. FLUOROSCOPIC IMAGES: 2 FINDINGS: Fluoroscopy was provided during total left hip arthroplasty. There is an acetabular screw. Hardware is intact. No fracture is visualized. There are no unexpected radiopaque foreign bodies. Rig ht hip arthroplasty is noted. IMPRESSION: Fluoroscopy provided during total left hip arthroplasty. ACT 112: Negative or not required by law. Electronically signed by: Aleksandar Melo M.D. 10/29/2019 11:37 AM
--- NOTE | 2019-10-29 12:21 | XRay Report ---
XR hip 1V LT w pelvis CLINICAL HISTORY: IN PACU - A/P PELVIS and LATERAL HIP arthroplasty COMPARISON: 07/26/2017 DISCUSSION: Pre-existing total right hip arthroplasty. Interval placement of a total left hip arthrop lasty. Good contact between prosthetic and underlying bone. Expected soft tissue postoperative change IMPRESSION: Anatomic alignment post total left hip arthroplasty. ACT 112: Negative or not required by law. The above report was generated using voice recognition software. It may contain grammatical, syntax or spelling errors. Electronically signed by: Brando Steen M.D. 10/29/2019 12:20 PM
--- NOTE | 2019-10-29 12:57 | Anesthesiology Progress Note ---
Date of Service October 29, 2019 Anesthesia Post Procedure Vital Signs Vital Signs: Temp Pulse Pulse Resp BP BP Pulse Ox 10/29/19 12:45 51 L 17 104/73 98 10/29/19 12:35 51 L 18 107/67 100 10/29/19 12:25 71 16 105/68 100 10/29/19 12:15 52 L 14 105/69 99 10/29/19 12:05 54 L 12 103/67 99 10/29/19 11:55 36.0 C L 58 L 17 104/63 97 10/29/19 08:33 60 18 134/88 10/29/19 07:47 36.7 C 52 L 18 139/97 97 Pain Intensity Left Hip: Pain Intensity: 0 Transfer of Care Handoff Completed per policy Notes Mental Status: alert / awake / arousable and participated in evaluation Patient Amnestic to Procedure: Yes Nausea / Vomiting: adequately controlled Pain: adequately controlled Airway Patency, RR, SpO2: stable & adequate BP & HR: stable & adequate Hydration State: stable & adequate Anesthetic Complications: no major complications apparent and Pt Satisfied with anesthetic care Notes: Patient complained of sharp left chest pain when exhaling. It was mainly located on his lower left ribcage. He denies any chest pressure, pain radiating to the jaw or arm, lighteadedness, dizziness or nausea. All vital signs are stable. A 12 lead EKG was done and showed sinus bradycardia with HR 48 and no ischemic changes. The patient's pain seems to be muscular in nature and may be due to intraoperative positioning. I instructed the patient to tell his nurse on the floor if the pain worsens or does not improve. He understands and agrees.
[2019-10-29] MEDS ORDERED: METOCLOPRAMIDE HCL INJ 5 MG/ML 2 ML VIAL IV PRN (14:10)
[2019-10-29] MEDS ORDERED: NALOXONE HCL 0.4 MG/1 ML VIAL/CARP IV PRN (14:10)
[2019-10-29] MEDS ORDERED: bisacodyL 10 MG SUPP PR PRN (14:10)
[2019-10-29] MEDS ORDERED: MAGNESIUM HYDROXIDE SUSP 30 ML UDC PO PRN (14:10)
[2019-10-29] MEDS ORDERED: HYDROmorphone INJ 0.5 MG/0.5 ML SYR IV PRN (14:10)
[2019-10-29] MEDS ORDERED: OXYCODONE HCL IR 5 MG TAB (IMMEDIATE RELEASE) PO PRN (14:10)
[2019-10-29] MEDS ORDERED: ONDANSETRON INJ 2 MG/ML 2 ML VIAL IV PRN (14:10)
[2019-10-29] MEDS: KETOROLAC TROMETHAMINE 15 MG/ML VIAL IV SCH ×2 (14:51→20:53)
[2019-10-29] MEDS: ACETAMINOPHEN 500 MG TAB PO SCH ×2 (14:51→21:47)
--- NOTE | 2019-10-29 14:53 | Electrocardiogram Report ---
Test Reason : Blood Pressure : / mmHG Vent. Rate : 048 BPM Atrial Rate : 048 BPM P-R Int : 146 ms QRS Dur : 092 ms QT Int : 482 ms P-R-T Axes : 069 050 066 degrees QTc Int : 430 ms Sinus bradycardia Otherwise normal ECG When compared with ECG of 17-OCT-2019 13:11, No significant change was found Confirmed by Zafar Camp ([id number]) on 10/29/2019 2:53:42 PM Referred By: Arvind Wilkins Confirmed By:Zafar Camp
[2019-10-29] MEDS: SODIUM CHLORIDE 0.9% 1000ML 1,000 ML IV SCH (15:34)
--- NOTE | 2019-10-29 15:35 | Orthopedic Progress Note ---
Date of Service October 29, 2019 Assessment & Plan (1) Degenerative joint disease of left hip: Status post left anterior total hip arthroplasty -Ancef x24 -DVT prophylaxis: SCDs, teds, 81 mg ASA twice daily -Weight-bear as tolerates left lower extremity -PT/OT -Postoperative x-ray demonstrates a well aligned well fixed total hip prosthesis without out evidence of fracture dislocation. -A.m. labs -DC planning Admission and Anticipated Discharge Date Admission Date: October 29, 2019 Subjective Post Operative Progress Note Patient seen sitting up in bed, comfortable, denies complaints, pain well controlled, no acute issues. Review of Systems Review of Systems: All systems reviewed & are unremarkable except as noted in HPI & below Constitutional: as per Subjective / HPI Physical Exam Physical Exam: LLE NVSI +EHL/FHL/TA/GS SILT grossly, +2 DP pulse, compartments soft NT, dressing cdi. Constitutional: WD/WN, vitals as above Results & Data ([place]) Vital Signs (Past 12 Hours) Vital Signs Temp Pulse Pulse Pulse Resp BP BP 10/29/19 15:26 36.6 C 73 18 137/88 10/29/19 14:55 37 C 76 18 132/85 10/29/19 14:31 58 L 16 104/64 10/29/19 13:58 36.2 C L 56 L 16 113/71 10/29/19 13:45 36.3 C L 57 L 20 105/68 10/29/19 13:35 51 L 13 114/73 10/29/19 13:25 61 18 108/71 10/29/19 13:15 49 L 14 111/74 10/29/19 13:05 50 L 17 104/70 10/29/19 12:55 48 L 17 107/69 10/29/19 12:45 51 L 17 104/73 10/29/19 12:35 51 L 18 107/67 10/29/19 12:25 71 16 105/68 10/29/19 12:15 52 L 14 105/69 10/29/19 12:05 54 L 12 103/67 10/29/19 11:55 36.0 C L 58 L 17 104/63 10/29/19 08:33 60 18 134/88 10/29/19 07:47 36.7 C 52 L 18 139/97 Pulse Ox 10/29/19 15:26 96 10/29/19 14:55 97 10/29/19 14:31 96 10/29/19 13:58 97 10/29/19 13:45 98 10/29/19 13:35 99 10/29/19 13:25 99 10/29/19 13:15 99 10/29/19 13:05 100 10/29/19 12:55 100 10/29/19 12:45 98 10/29/19 12:35 100 10/29/19 12:25 100 10/29/19 12:15 99 10/29/19 12:05 99 10/29/19 11:55 97 10/29/19 08:33 10/29/19 07:47 97
[2019-10-29] MEDS: CEFAZOLIN 2000MG 2,000 MG/15 ML SYR IV SCH (17:37)
[2019-10-29] MEDS: DOCUSATE SODIUM 100 MG CAP PO SCH (20:54)
[2019-10-29] MEDS ORDERED: SENNA 8.6 MG TAB PO SCH (21:00)
[2019-10-29] MEDS ORDERED: CeleBREX 200 MG CAP PO SCH (21:00)
[2019-10-29] MEDS ORDERED: TAMSULOSIN HCL 0.4 MG CAP PO SCH (21:00)
[2019-10-30] MEDS: KETOROLAC TROMETHAMINE 15 MG/ML VIAL IV SCH ×3 (02:37→08:30)
[2019-10-30] MEDS: CEFAZOLIN 2000MG 2,000 MG/15 ML SYR IV SCH (02:38)
[2019-10-30] MEDS: SODIUM CHLORIDE 0.9% 1000ML 1,000 ML IV SCH (03:16)
[2019-10-30] MEDS: ACETAMINOPHEN 500 MG TAB PO SCH ×2 (05:07→13:30)
[2019-10-30 06:06] LABS: Basophils # (auto) 0.01 K/uL (0-0.2); Basophils % (auto) 0.1 %; Eosinophils # (auto) 0.02 K/uL (0-0.5); Eosinophils % (auto) 0.1 %; Hematocrit (blood only) 36.1 % (42-52); Hemoglobin 12.2 g/dL (14.0-18.0); Immature Granulocytes # (auto) 0.05 K/uL (0.00-0.02); Immature Granulocytes % (auto) 0.4 %; Lymphocytes # (auto) 0.79 K/uL (1.2-3.4); Lymphocytes % (auto) 5.7 %; Mean Corpuscular Hgb Conc 33.8 g/dL (32-36); Mean Corpuscular Volume 88.9 fL (80-100); Mean Platelet Volume 10.1 fL (7.4-10.4); Monocytes # (auto) 1.19 K/uL (0.11-0.59); Monocytes % (auto) 8.6 %; Neutrophils # (auto) 11.77 K/uL (1.4-6.5); Neutrophils % (auto) 85.1 %; Platelet Count 207 K/uL (130-400); RDW Coefficient of Variation 13.4 % (11.5-14.5); RDW Standard Deviation 43.3 fL (36.4-46.3); Red Blood Count 4.06 M/uL (4.7-6.1); White Blood Count 13.83 K/uL (4.8-10.8)
[2019-10-30 06:41] LABS: BUN Creatinine Ratio 31.6 (10-20); Calcium 8.6 mg/dl (8.5-10.1); Creatinine Clr Calc Pharmacy 77.1 ml/min; Est GFR (African American) 98.1; Est GFR (Non-African American) 84.6; Potassium 4.3 mmol/L (3.5-5.1)
--- NOTE | 2019-10-30 07:40 | Anesthesiology Progress Note ---
Date of Service October 30, 2019 Anesthesia Post Procedure Vital Signs Vital Signs: Temp Pulse Pulse Pulse Resp BP BP 10/30/19 07:18 36.5 C 54 L 16 128/83 10/30/19 03:18 37.1 C 56 L 15 117/73 10/30/19 00:47 37.0 C 60 15 134/75 10/29/19 20:45 37 C 60 18 113/69 10/29/19 17:00 36.6 C 64 18 120/81 10/29/19 16:00 36.7 C 64 18 113/73 10/29/19 15:26 36.6 C 73 18 137/88 10/29/19 14:55 37 C 76 18 132/85 10/29/19 14:31 58 L 16 104/64 10/29/19 13:58 36.2 C L 56 L 16 113/71 10/29/19 13:45 36.3 C L 57 L 20 105/68 10/29/19 13:35 51 L 13 114/73 10/29/19 13:25 61 18 108/71 10/29/19 13:15 49 L 14 111/74 10/29/19 13:05 50 L 17 104/70 10/29/19 12:55 48 L 17 107/69 10/29/19 12:45 51 L 17 104/73 10/29/19 12:35 51 L 18 107/67 10/29/19 12:25 71 16 105/68 10/29/19 12:15 52 L 14 105/69 10/29/19 12:05 54 L 12 103/67 10/29/19 11:55 36.0 C L 58 L 17 104/63 10/29/19 08:33 60 18 134/88 10/29/19 07:47 36.7 C 52 L 18 139/97 Pulse Ox 10/30/19 07:18 99 10/30/19 03:18 95 10/30/19 00:47 96 10/29/19 20:45 96 10/29/19 17:00 96 10/29/19 16:00 95 10/29/19 15:26 96 10/29/19 14:55 97 10/29/19 14:31 96 10/29/19 13:58 97 10/29/19 13:45 98 10/29/19 13:35 99 10/29/19 13:25 99 10/29/19 13:15 99 10/29/19 13:05 100 10/29/19 12:55 100 10/29/19 12:45 98 10/29/19 12:35 100 10/29/19 12:25 100 10/29/19 12:15 99 10/29/19 12:05 99 10/29/19 11:55 97 10/29/19 08:33 10/29/19 07:47 97 Pain Intensity Left Hip: Pain Intensity: 5 Notes Mental Status: alert / awake / arousable and participated in evaluation Patient Amnestic to Procedure: Yes Nausea / Vomiting: adequately controlled Pain: adequately controlled Airway Patency, RR, SpO2: stable & adequate BP & HR: stable & adequate Hydration State: stable & adequate Neuraxial Anesthesia: was administered and sensory block resolved Anesthetic Complications: no major complications apparent
[2019-10-30] MEDS: DOCUSATE SODIUM 100 MG CAP PO SCH (08:30)
[2019-10-30] MEDS ORDERED: MULTIVITAMIN TAB PO SCH (09:00)
[2019-10-30] MEDS ORDERED: CeleBREX 200 MG CAP PO SCH (09:00)
[2019-10-30] MEDS ORDERED: ASPIRIN 81 MG ECTAB PO SCH (09:00)
--- NOTE | 2019-10-30 10:06 | Orthopedic Progress Note ---
Date of Service October 30, 2019 Assessment & Plan (1) Degenerative joint disease of left hip: Status post left anterior total hip arthroplasty POD#1 -Ancef x24 -DVT prophylaxis: SCDs, teds, 81 mg ASA twice daily -Weight-bear as tolerates left lower extremity -PT/OT -Postoperative x-ray demonstrates a well aligned well fixed total hip prosthesis without out evidence of fracture dislocation. -A.m. labs, as above, hgb 12.2 -DC planning - home with Admission and Anticipated Discharge Date Admission Date: October 29, 2019 Subjective Post Operative Progress Note Patient seen sitting up in bed, comfortable, denies complaints, pain well controlled, no acute issues. Denies F/C/N/V/SOB/CP. Review of Systems Review of Systems: All systems reviewed & are unremarkable except as noted in HPI & below Constitutional: as per Subjective / HPI Physical Exam Physical Exam: LLE NVSI +EHL/FHL/TA/GS SILT grossly, +2 DP pulse, compartments soft NT, dressing cdi. Constitutional: WD/WN, vitals as above Results & Data ([facility] [place]) Vital Signs (Past 12 Hours) Vital Signs Temp Pulse Resp BP BP Pulse Ox 10/30/19 07:18 36.5 C 54 L 16 128/83 99 10/30/19 03:18 37.1 C 56 L 15 117/73 95 10/30/19 00:47 37.0 C 60 15 134/75 96 Laboratory Results H & H 10/17/19 10/30/19 Range/Units 13:15 05:38 Hgb 14.0 12.2 L (14.0-18.0) g/dL Hct 42.3 36.1 L (42-52) % Coagulation 10/17/19 Range/Units 13:15 INR 1.0 (0.9-1.1) 10/30/19 10/30/19 Range/Units 05:38 05:38 WBC 13.83 H (4.8-10.8) K/uL RBC 4.06 L (4.7-6.1) M/uL Hgb 12.2 L (14.0-18.0) g/dL Hct 36.1 L (42-52) % MCV 88.9 (80-100) fL MCH 30.0 (25-34) pg MCHC 33.8 (32-36) g/dL RDW Std Deviation 43.3 (36.4-46.3) fL RDW Coeff of Isadora 13.4 (11.5-14.5) % Plt Count 207 (130-400) K/uL MPV 10.1 (7.4-10.4) fL Immature Gran % (Auto) 0.4 % Neut % (Auto) 85.1 % Lymph % (Auto) 5.7 % Nance % (Auto) 8.6 % Eos % (Auto) 0.1 % Baso % (Auto) 0.1 % Neut # (Auto) 11.77 H (1.4-6.5) K/uL Lymph # (Auto) 0.79 L (1.2-3.4) K/uL Nance # (Auto) 1.19 H (0.11-0.59) K/uL Eos # (Auto) 0.02 (0-0.5) K/uL Baso # (Auto) 0.01 (0-0.2) K/uL Immature Gran # (Auto) 0.05 H (0.00-0.02) K/uL Sodium 138 (136-145) mmol/L Potassium 4.3 (3.5-5.1) mmol/L Chloride 108 H (98-107) mmol/L Carbon Dioxide 26 (21-32) mmol/L Anion Gap 4.0 (3-11) BUN 29 H (7-18) mg/dl Creatinine 0.93 (0.6-1.4) mg/dl Est Cr Clr Drug Dosing 77.1 ml/min Est GFR ( Amer) 98.1 Est GFR (Non-Af Amer) 84.6 BUN/Creatinine Ratio 31.6 H (10-20) Glucose 121 H (70-99) mg/dl Calcium 8.6 (8.5-10.1) mg/dl
--- NOTE | 2019-10-30 10:06 | Discharge Summary ---
Date of Service October 30, 2019 Admission HPI Per Admitting Provider The patient is a 69 year old male who presents with complaints of severe left hip pain and DJD. The patient has failed outpatient conservative treatments to this point which included NSAIDs, IA corticosteroid injection, PT and a home exercise walking program. The patient's pain and limited function have progressed to the point where they severely hinder their activities of daily living and they no longer tolerate exercise programs. They are requesting to proceed with total hip replacement surgery. Principal Diagnosis Left total hip replacement Discharge Exam LLE NVSI +EHL/FHL/TA/GS SILT grossly, +2 DP pulse, compartments soft NT, dressing cdi. Constitutional WD/WN, vitals as above Discharge Data Allergies Allergy/AdvReac Type Severity Reaction Status Date / Time chlorhexidine Allergy Intermediate RASH Verified 10/29/19 07:44 Consultations 10/30/19 08:00 Consult Case Management - Discharge Planning Routine Procedures Performed Operation Date: 10/29/19 10:00 Actual Procedures p Left Anterior Total Hip Arthroplasty(Left) - Arvind Wilkins DO Ordered Studies 10/29/19 10:00 FL fluoroscopy <1hr Routine FL hip LT 1V Routine Hospital Course (1) Degenerative joint disease of left hip: The patient is a 69 -year-old male who presents with long standing history of severe left hip DJD and failed outpatient conservative treatments. The patient's symptoms have progressed to the point where it has been difficult to perform even normal activities of daily living. I indicated the patient for a left anterior total hip arthroplasty, the risks, benefits and complications of the procedure include but not limited to infection, bleeding, damage to bone, nerves, vessels, surrounding soft tissue, may develop blood clots, loss of function, leg length discrepancy, dislocation, failure of the components, loosening of the components, the need for additional surgery and . The patient wished to proceed with surgery at this time and informed consent was obtained. Hospital Course: On 10/29/19 the patient was taken to the operating room, adequate anesthesia administered and underwent a left anterior total hip arthroplasty. The patient tolerated the procedure well and was taken to the PACU in stable condition. Post-operatively the patient was started on a DVT ppx medication and given appropriate IV antibiotics. Consults were placed to hospitalist, physical therapy, occupational therapy and case management. On POD#1, the patient did well overnight and their pain was well controlled. Labs were drawn and the Hgb was 12.2. The patient progressed well with PT. Dressings were changed at this time and the incision was clean, dry and intact. Patient had elevated BP during the afternoon ranging 160-170s/90s. We asked the medical hospitalist to see the patient for further recommendations. Per their recommendations: - Patient's blood pressure is elevated however he has no clinical signs or symptoms. Since hypertension is typically a chronic condition we do not recommend initiating any acute care unless he would develop acute symptoms such as chest pain headache, Renal dysfunction or strokelike symptoms. Patient be recommended to be discharged home with outpatient follow-up with his primary care physician go on a low-salt diet does if he develops any signs or s ymptoms of cardiac or cerebral dysfunction which were gone over with the patient by myself he should seek medical care. The patients hospital stay was relatively uneventful and they were deemed stable by the orthopedic team and consultants to be discharged home with HH on 10/30/19. Discharge Instructions: Upon discharge the patient may weight bear as tolerates through their operative extremity. They were instructed to keep the incision clean and dry at all times. The patient may shower but should not submerge the incision, avoid bathing, pools and hot tubes. The patient was given a script for pain medication and should take as instructed. The patient was given a script for DVT ppx 81mg ASA BID and should take as directed. The patient was instructed to not drive or travel for long distances until cleared to do so. If the patient develops any symptoms of fevers, chills, nausea, vomiting, increased redness, swelling, pain or drainage from the surgical site, they should notify the office and/or proceed to the nearest emergency room. The patient should follow up in 10-14 days after surgery for their routine post-operative follow-up appointment and should call the office to confirm the date and time. Status post left anterior total hip arthroplasty POD#1 -Ancef x24 -DVT prophylaxis: SCDs, teds, 81 mg ASA twice daily -Weight-bear as tolerates left lower extremity -PT/OT -Postoperative x-ray demonstrates a well aligned well fixed total hip prosthesis without out evidence of fracture dislocation. -A.m. labs, as above, hgb 12.2 -DC planning - home with HH Total Time Total Time Spent Total Time Spent (In Minutes): 45 Discharge Plan Discharge Items Patient Disposition: Home - Home Health Services Reason For Visit: LEFT HIP OSTEOARTHRITIS Discharge Diagnosis: Left anterior total hip replacement -Left hip DJD Condition on Discharge: Good Activity: Per Instructions section Lifting: Wait until after follow-up appointment Bathing: Keep incision dry Bathing Comment: No bathing, pools or hot tubs. Sexual Activity: Wait until after follow-up appointment Exercise/Sports: Wait until after follow-up appointment Driving/Machine Use: No driving Weightbearing: Full weightbearing Non-emergency contact: Primary Care Provider and Surgeon Call non-emergency contact if: you have any medication questions, your symptoms worsen, your pain is not controlled, your pain is worsening, your pain is unusual for you, your pain is concerning for you, you have a fever, your temperature is above 101, your wound has increased redness, your wound has increased drainage and your wound pain has increased Follow-up/Referrals: [id number] [Primary Care Provider] - Diet: Regular Addtl Attending Provider Instructions: ACTIVITY RECOMMENDATIONS: SELF CARE INSTRUCTIONS AFTER TOTAL HIP REPLACEMENT : Direct Anterior Approach Until the incision and soft tissues around your hip have healed, there is a possibility that the hip prosthesis could dislocate. A. Hip flexion ( Up & Down out of chair or steps ) may be difficult. This is normal. B. Numbness in front of the thigh is also normal for a few weeks. C. Use hand rails when walking on stairs. D. Wear low heeled shoes with non-slip soles. E. Be sure that your floors are free of things that could trip you - throw rugs, electrical cords, small objects. Avoid wet and waxed floors, especially with crutches and canes. F. Try to walk several times a day with rest periods between. G. Continue with all the exercises taught to you in the hospital. Again, make walking a part of your daily routine. SPECIAL CARE INSTRUCTIONS: VERY IMPORTANT TO READ AND REVIEW A. You may still be at risk for phlebitis and blood clots. 1. Wear surgical stockings (RENETTA hose) for 2 weeks after surgery to improve circulation and reduce swelling. 2. Take Aspirin 81mg twice daily for 4 weeks or as directed by your doctor. This is your blood thinner. 3. High risk patients may be prescribed a stronger blood thinner if necessary. 4. If you are on Coumadin normally, your family doctor/paralegals should monitor your blood work. Expect a phone call the day of or the day after bloodwork is drawn to adjust your dosage. B. You must take antibiotics before having dental work, bladder, bowel and other surgery. Your doctor will provide you with a permanent card to carry describing precautions. C. Call [facility] if you have a fever, redness or swelling around the incision, cloudy drainage from incision, or sudden increase in pain in your hip, not relieved by your regular pain medication. D. Please call the office at if you have any concerns or questions about your operation or recovery. * YOU MAY SHOWER, NO TUB BATHS UNTIL CLEARED BY YOUR DOCTOR. - Keep an extra close eye on the top portion of your incision. Be sure to keep clean & dry. * WEAR RENETTA HOSE 20 HOURS PER DAY FOR 2 WEEKS. * YOU MAY PROGRESS FROM A WALKER, TO A CANE, TO INDEPENDENT AT YOUR OWN PACE. * MOST PATIENTS WILL HAVE HOME NURSING FOR THERAPY. IF YOU DECIDE TO DO OUTPATIENT PHYSICAL THERAPY, PLEASE SCHEDULE THIS 3 TIMES PER WEEK. * DERMABOND Prineo- This is a mesh tape dressing that is covered with glue. It should remain in place until the incision is properly healed, usually 10-14 days. This dressing is designed to naturally slough off. You may trim the excess mesh tape as it peels off. Incision may be briefly wet in a shower. Dry immediately by blotting with a clean, dry towel. Do not bath or swim until instructed by your doctor. Do not scratch, rub, or pick at the dressing. Do not apply any topical ointments or lotions until dressing is completely removed and/or instructed by your doctor. There may be a small piece of suture material at one end of your incision. Do not pull or trim this. If it is bothersome or catching on clothing, you may cover it with a band-aid. FOLLOW UP VISIT: If appointment is not already scheduled: Please call [facility] to make a follow-up appointment for 2 weeks after your surgery at . Pending Studies at Discharge: No Stand-Alone Forms: My [employer], Opioid Pain Management, Smoking Cessation Medications and DC Order Prescriptions: New celecoxib [Celebrex] 200 mg Capsule 200 mg PO BID PRN (Reason: pain/inflammation) Qty: 28 RF: 0 aspirin 81 mg Tablet,Delayed Release (Dr/Ec) 81 mg PO BID Qty: 56 RF: 0 acetaminophen 500 mg Tablet 1,000 mg PO Q8 PRN (Reason: pain/fevers) Qty: 90 RF: 0 oxycodone 5 mg Tablet 5 mg PO Q6H MDD 4 tabs PRN (Reason: pain) Qty: 30 RF: 0 sennosides [Senokot] 8.6 mg Tablet 17.2 mg PO HS PRN (Reason: constipation) Qty: 28 RF: 0 Continued tamsulosin [Flomax] 0.4 mg Capsule 0.4 mg PO QPM RF: 0 Gnc Vitamin Pack 50 Plus 1 dose PO DAILY RF: 0 Airborne (ascorbate sodium) 1 dose PO DAILY RF: 0 Discontinued ibuprofen 200 mg Capsule 200 mg PO Q6H PRN (Reason: Pain) RF: 0 Discharge Orders: Discharge Order (Routine); Ordered 10/30/19 Ordered By: Arvind Loya/Other Patient Handouts: DVT Post Op Prevention Admission Data Admit Date/Time: 10/29/19 12:07 Attending Provider: Arvind Wilkins Admit Provider: Arvind Wilkins Primary Care Provider: PCP,NO Other Providers: Kiran Mcdaniel Other Interventions: Discharge Summary Assessment (RN) Last Done: 10/30/19 15:17
--- NOTE | 2019-10-30 15:04 | Hospitalist Consultation ---
Date of Consultation October 30, 2019 Assessment & Plan (1) Degenerative joint disease of left hip: - Pain management, bowel regimen and DVT ppx per the primary team - PT/OT consults, pt is planning on outpatient therapy - Hgb is stable - 12 at time of dc - No BM yet, encourage water and stool softeners for the next few days. (2) HTN (hypertension): - Elevated as a single event in the hospital, at this time the patient is not a candidate for antihypertensive therapy. Would encourage daily BP checks and have follow-up with his PCP, already scheduled for the end of October. He has follow-up with Dr. Wilkins, orthopedics in 2 weeks. This has been discussed with his orthopedic surgeon and is agreeable for discharging the patient home today. Supervising Physician Co-Signing Physician Notes Patient was seen and examined independently I discussed the case with Elizabeth Boucher PAC I reviewed pertinent past medical social family history and also the plan of care and agree with the plan of care. Patient's blood pressure is elevated however he has no clinical signs or symptoms. Since hypertension is typically a chronic condition we do not recommend initiating any acute care unless he would develop acute symptoms such as chest pain headache, Renal dysfunction or strokelike symptoms. Patient be recommended to be discharged home with outpatient follow-up with his primary care physician go on a low-salt diet does if he develops any signs or symptoms of cardiac or cerebral dysfunction which were gone over with the patient by myself he should seek medical care. Any exceptions will be noted below History of Present Illness Reason for Consultation: Hypertension Requesting Physician: Dr. Wilkins Attending Physician: Arvind Wilkins, History of Present Illness This is a 69 yo M with PMHx of previous Left hip surgery, who presented for elective R hip arthroplasty by Dr. Wilkins on 10/29/2019. He has been doing very well working with PT/OT, eating and drinking without nausea and vomiting. His bowels have not yet moved since being admitted here, but has been using pain medication and taking stool softeners. He has never had a bout of hypertension in the past, but likely with his recent stressful event being surgery and working more with PT/OT and walking increase his blood pressure. At this time he would not be a candidate for starting antihypertensives. We discussed daily BP checks and having him follow-up with Dr. Wilkins at the 2-week postop appointment. He also has a scheduled appointment with his PCP at the end of October which he should continue to follow-up with. Allergies Allergy/AdvReac Type Severity Reaction Status Date / Time chlorhexidine Allergy Intermediate RASH Verified 10/29/19 07:44 Home Medications Home Medications Medication Instructions Recorded Confirmed Type Airborne (ascorbate sodium) 1 dose PO DAILY 10/11/19 10/29/19 History Gnc Vitamin Pack 50 Plus 1 dose PO DAILY 10/11/19 10/29/19 History tamsulosin [Flomax] 0.4 mg PO QPM 10/11/19 10/29/19 History acetaminophen 1,000 mg PO Q8 PRN #90 tab 10/29/19 Rx aspirin 81 mg PO BID #56 tab 10/29/19 Rx celecoxib [Celebrex] 200 mg PO BID PRN #28 cap 10/29/19 Rx oxycodone 5 mg PO Q6H PRN #30 tab MDD 4 tabs 10/29/19 Rx sennosides [Senokot] 17.2 mg PO HS PRN #28 tab 10/29/19 Rx Patient History Medical History BPH (benign prostatic hyperplasia) Hearing deficit BL MABRY Osteoarthritis Surgical History History of appendectomy History of colonoscopy History of meniscectomy of right knee History of right hip replacement History of tonsillectomy History of wisdom tooth extraction Status post tendon repair LUE Family History Other Adopted Social History Preferred Language: Gambian Communication Ability: Effective Alteration Manager Required: No Beliefs That Will Affect Care: None marital status: Current Living Situation: Spouse Feels Safe at Home: Yes Safety Concerns: Feels Safe At This Time Smoking Status: Never smoker Do You Dip or Chew Tobacco: No ; Second Hand Exposure: Yes ( A CHILD) ; Tobacco Cessation Education Requested by Patient: No Hx Alcohol Use: Yes Alcohol type: wine Hx Substance Use: No Review of Systems Review of Systems: Constitutional: No fever, sweats or chills Eyes: No diplopia, no worsening or blurred vision ENT: normal hearing, no trouble swallowing Respiratory: No cough, sputum, dyspnea at rest or on exertion Cardiovascular: No chest pain, tightness or palpitations Abdomen: No pain, nausea, vomiting, diarrhea or constipation Musculoskeletal: No joint pain, calf pain, swelling Neurologic: No weakness, numbness/tingling, or balance problems Psychiatric: No anxiety or depression Skin: No rash or itch Physical Exam Physical Exam: General: awake, alert, no apparent distress Head: Normocephalic, atraumatic ENT: PERRL, EOMI, no pharyngeal exudate, mucous membranes moist Chest: Clear to auscultation, on room air, no adventitious breath sounds Cardiac: Sinus bradycardic, HR = 52, no murmur, no JVD, normal peripheral pulses, good capillary refill Abdominal: NABS x 4 quadrants, soft, nontender to palpation, no rebound, guarding or tenderness Extremities: Right hip dressing C/D/I, nontender to palpation surrounding the area, minimal ecchymotic area. Normal inspection, no peripheral edema or erythema, calfs nontender to palpation Psych: Normal mood and affect Neuro: AAO x 3, strength intact bilaterally and rated 5/5, no motor deficits, speech is clear, no peripheral sensory deficits Skin: no rash or erythema Results & Data Results & Data ([facility]) Vital Signs (Past 12 Hours) Vital Signs Temp Pulse Resp BP BP Pulse Ox 10/30/19 14:00 163/96 H 160/95 H 10/30/19 13:27 175/92 H 176/94 H 10/30/19 12:08 161/94 H 174/98 H 10/30/19 11:22 36.5 C 52 L 16 98 10/30/19 07:18 36.5 C 54 L 16 128/83 99 10/30/19 03:18 37.1 C 56 L 15 117/73 95 PG Care Time/CCT Total # of Minutes Spent Total Time Spent with Patient: Total time spent is greater than 50% in coordination of care (as documented) at patient's floor/unit and/or counseling patient: Coding Level of Care Code 94089 Inpt Consult Level 3 Diagnoses Degenerative joint disease of left hip M16.12 HTN (hypertension) I10
== END 2019-10-30 17:30 | disposition home health service (06) | DRG 470 ==
LOC: ASU 07:31 → 3E 12:07